=== PATIENT | male | born 1935 | race African-American/Black ===

== ENCOUNTER 2017-05-14 07:26 | Outpatient (CLI) | payer MEDICARE ==
--- NOTE | 2017-05-14 09:38 | CT ---
CT ABDOMEN WITH CONTRAST CT PELVIS WITH CONTRAST: DATE: 05/14/2017 HISTORY: A 81-year-old male with right upper quadrant abdominal pain with fever intermittently. R10.11 Dr. Morales discussed the findings by telephone with Dr. Elan Harris at 8:27 a.m. on 05/14/2017. Code CR. COMPARISON: None. TECHNIQUE: IV injection of iodinated contrast media: 100 mL of Isovue 370. Oral contrast media: Readi-Cat 2. FINDINGS: There are multiple diverticula in the ascending colon. There is an approximately 5 x 4.5 x 6 cm extr aluminal mass abutting the anterior surface of the ascending colon and abutting an inferolateral surf alexia of the proximal transverse colon, very close to the crotch of the hepatic flexure. This mass als o abuts the right anterolateral abdominal wall peritoneal surface. It is surrounded by much fat stra nding representing edema. This mass consists of innumerable tiny pockets of low attenuation (probabl y fluid), crisscrossed by numerous enhancing hills. The appearance is that of a phlegmon or an early abscess with numerous microchambers. There is no extraluminal gas. The pancreas, abdominal aorta, kidneys, adrenals, liver, and spleen, demonstrate no major pathology. Lung bases are grossly clear. No ascites or pneumoperitoneum. Decompressed urinary bladder. Diverticula in the sigmoid colon and scattered diverticula elsewhere in the colon. Moderate amount of colonic stool. The appendix is no rmal. IMPRESSION: 1. An inflammatory 6-cm extraluminal mass abutting the external surfaces of the right colon. 2. This is probably a phlegmon/abscess due to right colonic diverticulitis, which is uncommon. Becau se of its innumerable tiny microchambers, this probably would not be effectively drainable by percuta neous access. 3. There is a much smaller possibility that this could be an unusual extraluminal neoplasm complicate d by inflammation. 4. Surgical consultation is recommended. FARIBA Moreira POS: DEMETRIUS
[2017-05-14] MEDS ORDERED: Iopamidol 370 76% 100 ML VIAL ONE (11:44)
== END 2017-05-14 07:27 | disposition home or self-care (01) ==
LOC: CT 07:26
PROVIDERS: ATTEND Family Medicine
DX: R10.11 Right upper quadrant pain (principal); K63.89 Other specified diseases of intestine
CPT/HCPCS: 74177

== ENCOUNTER 2017-06-24 10:26 | Outpatient (CLI) | payer MEDICARE | END 2017-06-24 10:27 | disposition home or self-care (01) | LOC: BICCT 10:26 | PROVIDERS: ATTEND Surgery | DX: K57.92 Diverticulitis of intestine, part unspecified, without perforation or abscess without bleeding (principal); K63.89 Other specified diseases of intestine | CPT/HCPCS: 36415; 74177; 82565 ==

== ENCOUNTER 2018-05-04 10:23 | Inpatient (IN) | payer MEDICARE ==
[2018-05-04 11:02] LABS: #Eosinphils 0.1 thou/uL (0.0-0.7); #Lymphocytes 1.4 thou/uL (1.20-3.40); #Monocytes 0.4 thou/uL (0.11-0.59); #Neutrophils 4.3 thou/uL (1.40-6.50); %Basophils 0.2 % (0.0-1.0); %Eosinophils 1.6 % (0.0-10.0); %Monocytes 6.2 % (0.0-10.0); %Neutrophils 69.9 % (42.0-75.0); Hemoglobin 15.6 g/dL (14.0-18.0); Mean Corpuscular Hemoglobin 32.7 pg (27.0-31.0); Mean Corpuscular Volume 99.3 fL (78.0-98.0); Mean Platelet Volume 7.6 fL (7.4-10.4); Platelet Count 124 thou/uL (130-400); Red Blood Cell (RBC) Count 4.77 mill/uL (4.70-6.10); White Blood Cell (WBC) Count 6.2 thou/uL (4.8-10.8)
[2018-05-04 11:24] LABS: ALT (SGPT) 16 U/L (8-55); AST (SGOT) 21 U/L (5-34); Albumin 3.9 g/dL (3.4-4.8); Alkaline Phosphatase 48 U/L (40-150); Anion Gap 11 mmol/L (10-20); BUN (Urea Nitrogen) 12 mg/dL (8.4-25.7); Bilirubin, Total 1.6 mg/dL (0.2-1.2); Calc. Creatinine Clearance 0 mL/min (70-130); Calcium 9.2 mg/dL (7.8-10.44); Carbon Dioxide 28 mmol/L (23-31); Chloride 104 mmol/L (98-107); Estimated GFR-MDRD Greater than 90; Globulin 2.8 g/dL (2.4-3.5); Glucose 141 mg/dL (83-110); Potassium 3.6 mmol/L (3.5-5.1); Protein, Total 6.7 g/dL (5.8-8.1); Sodium 139 mmol/L (136-145)
--- NOTE | 2018-05-04 12:29 | CT ---
CT OF THE ABDOMEN AND PELVIS: DATE: 05/04/2018. PROVIDED CLINICAL HISTORY: Rectal bleeding. FINDINGS: Comparison is made with the CT examination dated 04/24/2018. The visualized lung bases are free of significant opacity. There is a 1.6 greatest transverse dimension x about 1.8 cm craniocaudal dimension soft tissue mass s een at the fundus of the stomach cranially containing internal calcification. The liver, spleen, pancreas, kidneys, and adrenal glands demonstrate an unremarkable CT appearance. There is no bowel dilatation, inflammatory fat stranding, free fluid, or free air apparent. No regional lymph node enlargement is evident. Vascular calcification is noted. Scattered colonic d iverticula are seen without CT evidence of diverticulitis. The appendix appears normal. IMPRESSION: 1. A 1.8 cm mass involving the fundus of the stomach for which endoscopic evaluation is recommended on a nonemergent basis There is also a smaller focus of increased density located more posteriorly a long the posterior aspect of the fundus of the stomach which could represent ingested material. An a dditional mass is possible. 2. Chronic findings as above. POS: DEMETRIUS
[2018-05-04] MEDS ORDERED: Iopamidol 370 76% 100 ML VIAL ONE (13:40)
[2018-05-04 14:03] VITALS: BMI 26.8
[2018-05-04] MEDS ORDERED: Ondansetron ODT 4 MG TAB SL PRN (14:07)
[2018-05-04] MEDS ORDERED: Acetaminophen 325 MG TAB PO PRN (14:07)
[2018-05-04] MEDS ORDERED: Sodium Chloride 0.9% 1,000 ML IV SCH ×2 (14:07→22:30)
[2018-05-04] MEDS ORDERED: Ondansetron PF 4 MG/2 ML Vial IVP PRN ×2 (14:07→18:13)
[2018-05-04] MEDS ORDERED: GoLYTELY 4,000 ml Bottle PO SCH (17:00)
[2018-05-04] MEDS ORDERED: Ondansetron ODT 4 MG TAB PO PRN (18:13)
[2018-05-04 18:32] LABS: #Lymphocytes 1.6 thou/uL (1.20-3.40); #Monocytes 0.4 thou/uL (0.11-0.59); #Neutrophils 4.3 thou/uL (1.40-6.50); %Basophils 0.6 % (0.0-1.0); %Eosinophils 0.2 % (0.0-10.0); %Lymphocytes 25.8 % (21.0-51.0); %Monocytes 5.6 % (0.0-10.0); %Neutrophils 67.8 % (42.0-75.0); Hemoglobin 13.8 g/dL (14.0-18.0); Mean Corpuscular HGB CONC 32.9 g/dL (32.0-36.0); Mean Corpuscular Hemoglobin 32.2 pg (27.0-31.0); Mean Corpuscular Volume 97.8 fL (78.0-98.0); Mean Platelet Volume 7.5 fL (7.4-10.4); Platelet Count 116 thou/uL (130-400); RBC Distribution Width 11.7 % (11.5-14.5); White Blood Cell (WBC) Count 6.3 thou/uL (4.8-10.8)
[2018-05-04] MEDS: Sodium Chloride 0.9% 1,000 ML IV SCH (19:39)
--- NOTE | 2018-05-04 20:23 | CON ---
DATE OF CONSULTATION: 05/04/2018 TYPE OF CONSULTATION: GI Inpatient REASON FOR CONSULTATION: GI bleeding. HISTORY OF PRESENT ILLNESS: Audie Pope is a very pleasant 82-year-old gentleman. He has previously seen my GI colleague, Dr. Katrin Jane. He has had a couple of episodes of diverticular bleeding in the past. He had an episode in 2000 and again in 2006. His last colonoscopy was in 2005 and showed only a single hyperplastic polyp, which was removed and diffuse diverticulosis of the colon. More recently, back in April 2017, he had an episode of complicated diverticulitis and a CT scan that showed actually a 6 cm abscess in the right colon. This was managed conservatively and by followup scan in May 2017, this area had reduced in size. He did not undergo any colon surgery. He did not undergo any repeat endoscopy. He has no chronic gastrointestinal symptoms. Early this morning, he passed a large amount of bright red blood per rectum. This happened 2 more times over the course of today. This was large volume and alarming to him. He feels like it is consistent with prior episodes of diverticular bleeding. He had a single lower abdominal cramp earlier today, but really no ongoing abdominal pain at all. No anal pain. He denies any presyncope, though he does state there is a bit of a heaviness in his shoulders sometimes. On presentation, his hemoglobin was 15.6. He has been hemodynamically stable without any tachycardia and with stable blood pressure. Currently feeling okay, but an abdominal CT scan performed on admission earlier today demonstrates a 1.6 x 1.8 cm soft tissue mass in the gastric fundus, diverticulosis, but no evidence of diverticulitis. No bowel dilation. No other abnormalities. It appears that he has had resolution of his right colonic fluid collection. REVIEW OF SYSTEMS: Full review of systems including constitutional, head, eyes, ears, nose, throat, GI, , cardiovascular, respiratory, musculoskeletal, and neurologic systems are negative except as noted in HPI. PAST MEDICAL HISTORY: Neck surgery, hypertension, hyperlipidemia, diverticular bleeding episodes in 2000 and 2006, last colonoscopy in 2005 showing hyperplastic polyp and diverticulosis, complicated diverticulitis in April 2017. ALLERGIES: NO KNOWN DRUG ALLERGIES. OUTPATIENT MEDICATIONS: 1. Aspirin 325 mg daily. 2. Zocor. 3. Hydrochlorothiazide. 4. Atenolol. 5. Doxazosin. FAMILY HISTORY: Negative for GI malignancy. SOCIAL HISTORY: Former smoker. No alcohol or drug use. PHYSICAL EXAMINATION: VITAL SIGNS: Temperature 97.9, pulse 74, blood pressure 101/69, and 97% oxygen saturation on room air. GENERAL: An 82-year-old gentleman, lying in bed comfortably, in no distress. SKIN: No pallor, no jaundice, no rashes were palpable. EYES: No scleral icterus. Extraocular movements intact. ENT: Mucous membranes moist. No oral lesions. LYMPH: No submandibular or supraclavicular lymphadenopathy. Thyroid nontender to palpation. HEART: Regular rate and rhythm. No murmur appreciated. LUNGS: Clear to auscultation bilaterally. ABDOMEN: Flat. Bowel sounds present. Soft and nontender to palpation throughout. EXTREMITIES: No peripheral edema. VESSELS: Radial pulses 2+ bilaterally. NEURO: Cranial nerves 2 through 12 intact bilaterally. No focal deficits. LABORATORY STUDIES: Hemoglobin 15.6, WBC 6.2, and platelets 124. Sodium 139, potassium 3.6, BUN 12, creatinine 0.87, and glucose 141. Total bilirubin 1.6, alkaline phosphatase 48, AST 21, ALT 16, and albumin 3.9. IMAGING STUDIES: CT of the abdomen and pelvis demonstrates a 1.6 x 1.8 cm soft tissue mass involving the gastric fundus with central calcification. There is no lymphadenopathy. No evidence of any inflammation or bowel dilation. Liver, spleen, and pancreas appear normal. There is colonic diverticulosis with no evidence of diverticulitis. ASSESSMENT AND PLAN: 1. Lower gastrointestinal bleeding, acute, likely diverticular in origin. 2. Gastric mass, 1.8 cm in the fundus per CT scan. The CT finding of possible gastric mass strikes me as likely unrelated to his acute bleeding presentation. If you are bleeding from an upper gastrointestinal source and the blood were bright red like this, I would expect his BUN to be elevated and for us to see some hemodynamic instability or at least a low blood count. So, I think this CT finding is incidental, though certainly further investigation is warranted. The bleeding itself strikes me as likely diverticular in origin and indeed he has had episodes of diverticular bleeding in the past. His labs and hemodynamics are currently favorable, but he needs to be closely monitored for the remainder of the day and this evening. Would recheck H and H later this evening, transfuse if needed. If the patient was to develop tachycardia or presyncope, I have a low threshold for ICU transfer. We will plan for bowel preparation this evening and diagnostic upper and lower endoscopy tomorrow. The patient is agreeable to this. Thank you for the consultation. Please call anytime with questions or concerns. Job ID: [id number]
[2018-05-04] MEDS: Simvastatin 40 MG TAB PO SCH (21:07)
[2018-05-04] MEDS: Doxazosin Mesylate 4 MG TAB PO SCH (21:07)
[2018-05-05] MEDS: Sodium Chloride 0.9% 1,000 ML IV SCH ×3 (00:10→21:33)
--- NOTE | 2018-05-05 01:06 | HP ---
PRIMARY CARE PHYSICIAN: Elan Harris MD CHIEF COMPLAINT: Rectal bleeding. HISTORY OF PRESENT ILLNESS: The patient states that acute onset over the last 1 day here of bright red blood per rectum. The patient states that this has happened before with a bout of diverticulitis with abscess formation. He presented to the emergency department for evaluation. CT showed possible gastric mass. No resemblance of diverticulitis on scan. The patient has had noticeable bloody stools in both emergency department and on floor. Nursing staff reported the patient is having typical hypertension, has become somewhat hypotensive despite being on IV fluids. The patient has described vasovagal response in recent days on using the rest room. Temperature of 98.1, pulse of 91, respiratory rate of 16, blood pressure 90/64. Hemoglobin of 15.6 decreased to 13.8 on recheck. Creatinine is 0.87. PAST MEDICAL HISTORY: Review of past medical, social, and surgical history includes hypertension, hyperlipidemia, diverticulosis, prior colon polyps. ALLERGIES: NO KNOWN DRUG ALLERGIES. HOME MEDICATIONS: Include: 1. Aspirin 325. 2. Zocor. 3. Hydrochlorothiazide. 4. Atenolol. 5. Doxazosin. SOCIAL HISTORY: The patient is a former smoker. PAST SURGICAL HISTORY: The patient has had prior cervical spine surgery. PHYSICAL EXAMINATION: GENERAL: He is alert and oriented, in no acute distress. HEENT: Head is normocephalic and atraumatic. Extraocular movements are intact. Oral mucosa is moist. NECK: Supple. HEART: Regular rate and rhythm at the time of exam. No murmurs auscultated. LUNGS: Clear to auscultation bilaterally. No rubs or wheezes. ABDOMEN: Protuberant, soft, nontender. No rebound or guarding. EXTREMITIES: Lower extremities without cyanosis or edema. NEUROLOGIC: The patient is alert and oriented x3. No focal deficits. Speech is normal. ASSESSMENT AND PLAN: Rectal bleeding with anemia of acute blood loss, possible gastric mass, hypertension that has since turned into hypotension following acute blood loss and possible vasovagal response. Dr. Yaron Mariano was consulted for Gastroenterology for possible upper and lower scopes. The patient is not tolerating GI prep very well with vagal response and additional dip in blood pressure, bolusing 500 NS, continuing IV fluids. We will continue to monitor the patient's progress and trend hemoglobins. We will handoff to Dr. Elan Harris in the morning. Job ID: [id number]
[2018-05-05 05:18] LABS: #Lymphocytes 1.9 thou/uL (1.20-3.40); #Monocytes 0.5 thou/uL (0.11-0.59); %Basophils 0.2 % (0.0-1.0); %Eosinophils 0.2 % (0.0-10.0); %Lymphocytes 29.5 % (21.0-51.0); %Monocytes 7.6 % (0.0-10.0); %Neutrophils 62.5 % (42.0-75.0); Hemoglobin 11.1 g/dL (14.0-18.0); Mean Corpuscular HGB CONC 33.3 g/dL (32.0-36.0); Mean Corpuscular Hemoglobin 32.9 pg (27.0-31.0); Mean Corpuscular Volume 98.7 fL (78.0-98.0); Mean Platelet Volume 7.5 fL (7.4-10.4); Platelet Count 119 thou/uL (130-400); RBC Distribution Width 11.8 % (11.5-14.5); Red Blood Cell (RBC) Count 3.37 mill/uL (4.70-6.10); White Blood Cell (WBC) Count 6.4 thou/uL (4.8-10.8)
[2018-05-05 05:38] LABS: Anion Gap 12 mmol/L (10-20); BUN (Urea Nitrogen) 14 mg/dL (8.4-25.7); Calc. Creatinine Clearance 88 mL/min (70-130); Calcium 8.2 mg/dL (7.8-10.44); Carbon Dioxide 27 mmol/L (23-31); Chloride 106 mmol/L (98-107); Estimated GFR-MDRD Greater than 90; Glucose 122 mg/dL (83-110); Potassium 3.8 mmol/L (3.5-5.1); Sodium 141 mmol/L (136-145)
[2018-05-05] MEDS ORDERED: Sodium Chloride 0.9% 1,000 ML IV SCH ×2 (07:30→19:45)
[2018-05-05] MEDS: Atenolol 50 MG TAB PO SCH (10:46)
[2018-05-05 12:59] LABS: Hemoglobin 8.4 g/dL (14.0-18.0)
[2018-05-05] MEDS ORDERED: Promethazine HCl 25 MG/ML VIAL IM PRN (15:17)
[2018-05-05] MEDS ORDERED: Promethazine HCl 25 MG/ML VIAL SLOW IVP PRN (15:17)
[2018-05-05] MEDS ORDERED: Ondansetron HCl/PF 4 MG/2 ML Vial IVP PRN (15:17)
--- NOTE | 2018-05-05 16:24 | PRG ---
DATE OF SERVICE: 05/05/2018 SUBJECTIVE: Mr. Pope is in for GI bleeding. He is currently scheduled to have upper and lower endoscopy. He was found to have some type of stomach mass, although GI bleed seems to be more lower GI bleeding, which he has had previously. Nurse reports that he is hypotensive and feels somewhat dizzy. OBJECTIVE: VITAL SIGNS: Blood pressure is 85/57, pulse 101 and regular, and temperature 98.9. GENERAL: He is alert and active, does not appear in any distress. LUNGS: Clear. HEART: Reveals no murmur. Regular rate and rhythm is otherwise noted. LABORATORY DATA: His hemoglobin this morning is 11.1 and hematocrit 33.3. Electrolytes are normal at this time. IMPRESSION: 1. Gastrointestinal bleeding probably lower. 2. Stomach mass of unknown significance. PLAN: Probably can proceed with upper and lower GI endoscopy. Once he completed his bolus of fluids, we will check another H and H stat right now. Job ID: [id number]
[2018-05-05 19:56] LABS: #Lymphocytes 2.2 thou/uL (1.20-3.40); #Monocytes 0.7 thou/uL (0.11-0.59); #Neutrophils 4.5 thou/uL (1.40-6.50); %Basophils 0.1 % (0.0-1.0); %Eosinophils 0.2 % (0.0-10.0); %Lymphocytes 29.4 % (21.0-51.0); %Monocytes 9.3 % (0.0-10.0); Hemoglobin 6.3 g/dL (14.0-18.0); Mean Corpuscular HGB CONC 33.4 g/dL (32.0-36.0); Mean Corpuscular Hemoglobin 33.4 pg (27.0-31.0); Mean Corpuscular Volume 99.9 fL (78.0-98.0); Platelet Count 90 thou/uL (130-400); RBC Distribution Width 11.9 % (11.5-14.5); Red Blood Cell (RBC) Count 1.88 mill/uL (4.70-6.10); White Blood Cell (WBC) Count 7.4 thou/uL (4.8-10.8)
[2018-05-05] MEDS ORDERED: Lidocaine 1% PF 5 ML VIAL ONE (21:26)
[2018-05-05] MEDS ORDERED: PHENYLEPHRINE-NS 100 MCG/ML 10 ML SYRINGE ONE (21:26)
[2018-05-05] MEDS ORDERED: PROPOFOL 200 MG/20 ML VIAL ONE (21:26)
--- NOTE | 2018-05-05 21:40 | OP ---
DATE OF PROCEDURE: 05/05/2018 PROCEDURES PERFORMED: Esophagogastroduodenoscopy with biopsy and controlled hemorrhage, colonoscopy with controlled hemorrhage. INDICATION FOR PROCEDURE: Abnormal GI imaging (showing gastric mass), hematochezia. DESCRIPTION OF PROCEDURE: After the risks and benefits of the procedure were explained to the patient including risks of bleeding, infection, perforation, reactions to anesthesia, aspiration, and/or pain, informed consent was obtained. The patient was then taken to the endoscopy suite, where deep sedation was administered via propofol and anesthesia support. Once adequate sedation was achieved, the standard gastroscope was introduced into the mouth with intubation of the esophagus, stomach, and the proximal small intestine with the findings listed below. The patient tolerated this portion of the procedure well with no immediate perioperative complications. Upon completion of this phase of the procedure, all equipment was removed from the patient and the bed was rotated approximately 180 degrees. Once in adequate position, a digital rectal examination was performed followed by introduction of the standard colonoscope into the rectum and advanced with some difficulty to the terminal ileum. The quality of the prep was poor with a significant amount of old blood seen throughout the entire colon making it difficult to visualize both the colonic mucosa and the colonic lumen for passage through the colon. The patient tolerated the procedure well with no immediate perioperative complications. At the conclusion of the procedure, the patient was taken to PACU in satisfactory condition. EGD FINDINGS: Esophagus: Normal-appearing mucosa was seen in the proximal, mid, and distal esophagus. There was no evidence of erosions, ulcerations, mass, lesions, or active/recent bleeding. Stomach: A 1 cm submucosal nodule was seen in the gastric fundus without any associated pathology or increased erythema, ulcerations, erosions, or active/recent bleeding. Multiple biopsies were taken from the submucosal nodule with mild increased bleeding upon obtaining these biopsies. When one biopsy in particular, did not stop bleeding, upon direct visualization for approximately 3 to 4 minutes, at which point, bipolar cautery was applied using a 7-Syrian heater probe with good hemostasis achieved. Otherwise, the remainder of the stomach did not show any abnormalities in the gastric cardia, fundus, body, greater curvature, antrum, or incisura. Duodenum: Normal-appearing mucosa was seen in both the duodenal bulb and second portion of the duodenum. There was no evidence of erosions, ulcerations, mass, lesions, or active/recent bleeding. Impression: 1. A 1 cm submucosal nodule seen within the gastric fundus, status post biopsies and concerning for rather lipoma or GI stromal tumor (more likely). 2. Otherwise, normal upper endoscopy with no gastric malignancy seen during this examination. COLONOSCOPY FINDINGS: Digital rectal exam: Small external hemorrhoids were seen on digital rectal examination as well as extrusion of bright red blood per rectum. Colon findings: Normal-appearing mucosa without the evidence of blood was seen in the terminal ileum. However, throughout the entire colon, there was a significant amount of old bright red blood that was somewhat amenable to aggressive irrigation and suctioning. Approximately 3 L of sterile water was used to irrigate the entire colon with suctioning in order to achieve adequate visualization of the colonic mucosa. Even then, clear visualization of the colonic mucosa was not totally achieved with approximately 80% to 90% of the colonic mucosa adequately seen. There was innumerable diverticula seen in the ascending, transverse, descending, and sigmoid colons. Upon further examination of the mucosa, normal-appearing mucosa was seen at the ileocecal valve, the appendiceal orifice, cecum, and ascending colons. Upon careful inspection of each diverticulum encountered, a 6 to 7 mm diverticulum seen in the transverse colon had increased mucosal erythema at the base of the diverticulum itself along with what appeared to be a possible visible vessel versus a fibrin clot in the center of this mucosal erythema. A Hemoclip x1 was then used to approximate the entirety of the diverticulum itself and to close it off to further bleeding. Otherwise, again innumerable diverticulum were seen throughout the rest of the colon including the distal, transverse, descending, and sigmoid colons with no other additional abnormalities seen. Normal-appearing mucosa was seen within the rectum. Also of note, a 5 to 6 mm sessile polyp was seen in the ascending colon, but not intervened upon during this procedure due to recent increased bleeding and fear that this would potentially confound his current clinical status. Small internal hemorrhoids were seen on the rectal retroflexion. Impression: 1. A 4 to 5 mm ascending colon polyp not intervened upon due to possible increased risk of bleeding confounding current clinical situation. 2. Inadequate visualization of the colonic mucosa for 5 mucosal lesions, but no active bleeding was seen during this examination. 3. A 6 to 7 mm transverse colon diverticulum was seen with increased mucosal erythema and a possible visible vessel versus fibrin clot at its base, status post Hemoclip x1 with good hemostasis achieved. 4. Internal and external hemorrhoids. RECOMMENDATIONS: 1. We transferred the patient to intermediate care unit for further observation given his significant drop in H and H. 2. We would continue to trend H and H and transfuse as necessary to maintain an H and H of 7 and 21. 3. Continue to monitor clinically for signs of active GI bleeding. 4. If the patient continues to have significant amount of hematochezia, we would consider either a tagged red cell scan for better localization of the bleeding versus transferring the patient to a site that does CT angiography with coil embolization in order to stop the bleeding. We will continue to follow. Please call with any questions. Job ID: [id number]
[2018-05-05 22:34] LABS: #Basophils 0.1 thou/uL (0.0-0.2); #Lymphocytes 1.3 thou/uL (1.20-3.40); #Monocytes 0.6 thou/uL (0.11-0.59); #Neutrophils 5.2 thou/uL (1.40-6.50); %Basophils 0.8 % (0.0-1.0); %Eosinophils 0.7 % (0.0-10.0); %Lymphocytes 18.2 % (21.0-51.0); %Monocytes 7.8 % (0.0-10.0); %Neutrophils 72.5 % (42.0-75.0); Hemoglobin 8.2 g/dL (14.0-18.0); Mean Corpuscular HGB CONC 33.5 g/dL (32.0-36.0); Mean Corpuscular Hemoglobin 32.5 pg (27.0-31.0); Mean Platelet Volume 7.6 fL (7.4-10.4); Platelet Count 90 thou/uL (130-400); RBC Distribution Width 13.2 % (11.5-14.5); Red Blood Cell (RBC) Count 2.53 mill/uL (4.70-6.10); White Blood Cell (WBC) Count 7.1 thou/uL (4.8-10.8)
[2018-05-05] MEDS: Doxazosin Mesylate 4 MG TAB PO SCH (23:59)
[2018-05-05] MEDS: Simvastatin 40 MG TAB PO SCH (23:59)
[2018-05-06 06:08] LABS: #Eosinphils 0.1 thou/uL (0.0-0.7); #Lymphocytes 2.4 thou/uL (1.20-3.40); #Monocytes 0.6 thou/uL (0.11-0.59); #Neutrophils 6.2 thou/uL (1.40-6.50); %Basophils 0.2 % (0.0-1.0); %Eosinophils 0.8 % (0.0-10.0); %Lymphocytes 25.8 % (21.0-51.0); %Monocytes 6.6 % (0.0-10.0); %Neutrophils 66.7 % (42.0-75.0); Hemoglobin 9.1 g/dL (14.0-18.0); Mean Corpuscular HGB CONC 33.2 g/dL (32.0-36.0); Mean Corpuscular Hemoglobin 31.7 pg (27.0-31.0); Mean Corpuscular Volume 95.5 fL (78.0-98.0); Mean Platelet Volume 7.7 fL (7.4-10.4); Platelet Count 92 thou/uL (130-400); RBC Distribution Width 13.8 % (11.5-14.5); Red Blood Cell (RBC) Count 2.86 mill/uL (4.70-6.10); White Blood Cell (WBC) Count 9.3 thou/uL (4.8-10.8)
[2018-05-06 08:06] LABS: Anion Gap 9 mmol/L (10-20); BUN (Urea Nitrogen) 16 mg/dL (8.4-25.7); Calc. Creatinine Clearance 90 mL/min (70-130); Carbon Dioxide 21 mmol/L (23-31); Chloride 113 mmol/L (98-107); Estimated GFR-MDRD Greater than 90; Glucose 134 mg/dL (83-110); Potassium 3.5 mmol/L (3.5-5.1); Sodium 139 mmol/L (136-145)
[2018-05-06] MEDS: Sodium Chloride 0.9% 1,000 ML IV SCH ×3 (09:38→20:38)
[2018-05-06] MEDS: Atenolol 50 MG TAB PO SCH (09:39)
--- NOTE | 2018-05-06 12:55 | PRG ---
DATE OF SERVICE: 05/06/2018 SUBJECTIVE: Mr. Pope underwent embolization procedure last night at [facility] for his recurrent diverticular bleed. I spoke with Dr. Guillen at that time. At this time, he states he is feeling better. OBJECTIVE: VITAL SIGNS: Blood pressure 93/74, pulse 94, and O2 sats 100% on 2 L. LUNGS: Clear. HEART: Reveals no murmurs. ABDOMEN: Soft. LABORATORY DATA: Hemoglobin 9.1, hematocrit 27.3, and white blood count 9.3. IMPRESSION: 1. Lower gastrointestinal bleed, requiring embolization procedure, now stable. 2. Gastric mass, requiring further workup. PLAN: We will check basic metabolic panel later this morning. We will continue monitoring. Job ID: [id number]
--- NOTE | 2018-05-06 18:26 | PRG ---
DATE OF SERVICE: 05/06/2018 REPORT TITLE: GI inpatient daily progress note. SUBJECTIVE: Mr. Pope had an eventful day yesterday. I appreciate Dr. Guillen's assistance. Following his colonoscopy and hemoclip placement to a diverticulum in the transverse colon, he had evidence of acute rebleeding and hemodynamic instability. He was transferred to [facility] in [place] for CT angiogram with coil embolization. I do not have any official report from that procedure, but by verbal report, he actually was found to have active bleeding on that study and coil embolization to an area in the transverse colon, which correlates with the area in question seen by Dr. Guillen. Thankfully, after transfer back here over the course of today, the patient has not had any further bowel movement, certainly no hematochezia. His blood pressures have been much better, though I do note he has continued to have intermittent tachycardia. He does not have much appetite, but he is not having any abdominal pain. OBJECTIVE: VITAL SIGNS: Temperature 99.8, pulse 110, blood pressure 105/81, and 100% oxygen saturation on 2 L nasal cannula. GENERAL: No acute distress, a bit pale. HEART: Regular. Tachycardia. No murmur appreciated. LUNGS: Clear to auscultation bilaterally. ABDOMEN: Bowel sounds present. Soft and nontender to palpation throughout. EXTREMITIES: No peripheral edema. LABORATORY STUDIES: Hemoglobin 9.1, WBC 9.3, and platelets 92. His hemoglobin had declined to 6.3 by yesterday afternoon and is up to 9.1 after 2 units of RBC transfusion yesterday. Sodium 139, potassium 3.5, BUN 16, and creatinine 0.83. ASSESSMENT AND PLAN: 1. Diverticular bleeding, located in the transverse colon, now status post coil embolization to a bleeding vessel performed at [facility] earlier this morning on 05/06/2018. 2. Acute blood loss anemia, stabilized after blood transfusion. I see no further evidence of active GI bleeding since his procedure early this morning. He will probably have some leftover blood with his next bowel movement. Continue to monitor hemodynamics and H and H closely. I think his diet can be advanced to a regular diet at this time. 3. Submucosal gastric nodule, in the gastric fundus. This was biopsied by Dr. Guillen yesterday. This probably corresponds with the CT finding, which prompted the EGD in the first place. Awaiting results of biopsies. This might be compatible with a lipoma or GI stromal tumor. Unrelated to his acute presentation. We will follow up biopsy results once they are back. Please call anytime with questions or concerns. Job ID: [id number] MTDD
[2018-05-06] MEDS: Simvastatin 40 MG TAB PO SCH (20:37)
[2018-05-06] MEDS: Doxazosin Mesylate 4 MG TAB PO SCH (20:38)
[2018-05-06] MEDS: Acetaminophen 500 MG TAB PO PRN (22:16)
--- NOTE | 2018-05-07 02:41 | CON ---
DATE OF CONSULTATION: 05/06/2018 HISTORY OF PRESENT ILLNESS: Mr. Pope is an 82-year-old gentleman who had presented on the with the abdominal cramping, abdominal pain, and bright red blood per rectum. CT showed a possible gastric mass. He underwent endoscopy, which led to biopsies, which led to bleeding. Apparently, he ended up having to be transferred over to Interventional Radiology in [facility] for embolization of a bleeding vessel. Pathology is still pending. He says he feels 100% better. PAST MEDICAL HISTORY: Notable for, 1. Hypertension. 2. Liver disorder. 3. Diverticulosis. 4. History of colon polyps. MEDICATIONS: Prior to admission, he was on, 1. Aspirin. 2. Zocor. 3. Hydrochlorothiazide. 4. Atenolol. 5. Doxazosin. SOCIAL HISTORY: Former smoker. Not a daily drinker. FAMILY HISTORY: Not obtained. REVIEW OF SYSTEMS: 10 point review of systems completed, otherwise negative. PAST SURGICAL HISTORY: Remarkable for cervical spine surgery. PHYSICAL EXAMINATION: GENERAL: He is in no distress when I saw him after lunch. He is afebrile. VITAL SIGNS: Heart rate is 97, respiratory rate is 16, oximetry is 100% on 2 L, blood pressure is 99/61. HEAD: Unremarkable. Appears younger than his age. NECK: Unremarkable. LUNGS: Clear. HEART: Regular rhythm. ABDOMEN: Absolutely nontender. EXTREMITIES: Without clubbing, cyanosis, or edema. LABORATORY DATA: White count 9.3, hemoglobin 9.1, platelets 92,000. Sodium 139 , potassium 3.5, chloride 113, bicarb 21, BUN 16, creatinine 0.83, glucose 134. IMPRESSION: Status post embolization. He appears to be stable post coil embolization. Apparently, the embolization was done on the transverse colon. It is my understanding that this was a gastric nodule that was biopsied that was bleeding, but now reviewing Dr. Guillen's note , which was not available this morning, it appears it was diverticular bleed. He appears to be stable, will remain in the Intermediate Care Unit for now. This is a 50 minute consult, with greater than 50% of time spent on unit coordinating care. Job ID: [id number] [facility]
[2018-05-07 04:47] LABS: Anion Gap 6 mmol/L (10-20); BUN (Urea Nitrogen) 15 mg/dL (8.4-25.7); Calc. Creatinine Clearance 98 mL/min (70-130); Calcium 7.1 mg/dL (7.8-10.44); Carbon Dioxide 24 mmol/L (23-31); Chloride 113 mmol/L (98-107); Estimated GFR-MDRD Greater than 90; Glucose 112 mg/dL (83-110); Sodium 140 mmol/L (136-145)
[2018-05-07 04:55] LABS: Potassium 2.8 mmol/L (3.5-5.1)
[2018-05-07 05:11] LABS: Hemoglobin 5.8 g/dL (14.0-18.0); Mean Corpuscular HGB CONC 34.1 g/dL (32.0-36.0); Mean Corpuscular Hemoglobin 32.1 pg (27.0-31.0); Mean Platelet Volume 7.4 fL (7.4-10.4); Platelet Count 89 thou/uL (130-400); RBC Distribution Width 14.8 % (11.5-14.5); Red Blood Cell (RBC) Count 1.82 mill/uL (4.70-6.10); White Blood Cell (WBC) Count 6.1 thou/uL (4.8-10.8)
[2018-05-07 05:30] LABS: #Eosinphils 0.1 thou/uL (0.0-0.7); #Lymphocytes 0.7 thou/uL (1.20-3.40); #Monocytes 0.6 thou/uL (0.11-0.59); #Neutrophils 4.7 thou/uL (1.40-6.50); %Basophils 0.1 % (0.0-1.0); %Eosinophils 1.3 % (0.0-10.0); %Lymphocytes 12.2 % (21.0-51.0); %Monocytes 9.1 % (0.0-10.0); %Neutrophils 77.4 % (42.0-75.0); MDiff Complete? YES; PLT Morphology Comment Appears Decreased; Polychromasia SLIGHT = 2-3 cells (100X) (0-2/hpf)
[2018-05-07] MEDS ORDERED: Potassium Chloride 40 MEQ in Sodium Chloride 0.9% 250 ML 250 ML IVPB SCH (05:30)
[2018-05-07] MEDS: Sodium Chloride 0.9% 1,000 ML IV SCH ×2 (06:09→17:27)
[2018-05-07] MEDS: Atenolol 50 MG TAB PO SCH (09:15)
[2018-05-07 09:36] LABS: Hemoglobin 8.2 g/dL (14.0-18.0)
[2018-05-07 11:32] LABS: Hemoglobin 8.1 g/dL (14.0-18.0); Platelet Count 89 thou/uL (130-400)
--- NOTE | 2018-05-07 11:49 | PRG ---
DATE OF SERVICE: 05/07/2018 SUBJECTIVE: Mr. Pope has been doing well. His hemoglobin done this morning was 5.8, hematocrit 17.1. Potassium is 2.8. He has had no signs of any active bleeding. No blood per rectum has otherwise been noted. He does note some pain with urination. OBJECTIVE: VITAL SIGNS: Blood pressure 104/72, pulse 105, and temperature 99.9. LUNGS: Clear. HEART: Reveals no murmur. ABDOMEN: Soft. Bowel sounds are present and active. IMPRESSION: Probable recurrence of lower gastrointestinal bleed. PLAN: He is now in the process of being given 2 units of blood. Secondly, he is getting the potassium supplementation with IV potassium 40 mEq. We will check electrolytes and H and H on him at 11 o'clock. Job ID: [id number]
[2018-05-07 11:53] LABS: Anion Gap 10 mmol/L (10-20); BUN (Urea Nitrogen) 12 mg/dL (8.4-25.7); Calc. Creatinine Clearance 108 mL/min (70-130); Calcium 7.3 mg/dL (7.8-10.44); Carbon Dioxide 20 mmol/L (23-31); Chloride 114 mmol/L (98-107); Estimated GFR-MDRD Greater than 90; Glucose 98 mg/dL (83-110); Potassium 3.1 mmol/L (3.5-5.1); Sodium 141 mmol/L (136-145)
[2018-05-07] MEDS ORDERED: Potassium Chloride 20 MEQ in Premix Bag 1 BAG IVPB SCH (14:00)
[2018-05-07 16:05] LABS: Hemoglobin 8.7 g/dL (14.0-18.0); Platelet Count 89 thou/uL (130-400)
[2018-05-07 16:20] LABS: Anion Gap 8 mmol/L (10-20); BUN (Urea Nitrogen) 12 mg/dL (8.4-25.7); Calc. Creatinine Clearance 108 mL/min (70-130); Calcium 7.6 mg/dL (7.8-10.44); Carbon Dioxide 25 mmol/L (23-31); Chloride 112 mmol/L (98-107); Estimated GFR-MDRD Greater than 90; Glucose 92 mg/dL (83-110); Potassium 3.1 mmol/L (3.5-5.1); Sodium 142 mmol/L (136-145)
[2018-05-07] MEDS ORDERED: NS 0.9% w/ 20 MEQ KCL 1,000 ML IV SCH (17:00)
--- NOTE | 2018-05-07 18:07 | PRG ---
DATE OF SERVICE: 05/07/2018 SUBJECTIVE: Audie Pope had a mild resting tachycardia all night. His hemoglobin dropped down to approximately 5 g this morning. He was transfused 2 units of blood. His hemoglobin is up over 8 g now. He has absolutely no complaints, although, he does say he feels a little rumbling in his abdomen. Lungs are clear. Heart, regular rhythm. Abdomen soft. He has had no drop in blood pressure. He had a bloody bowel movement today and afebrile, in sinus rhythm. Blood pressure is 123/79 this afternoon. IMPRESSION: Transient recurrent bleeding? Neurosurgery has been consulted. I discussed the case with Dr. Carrasquillo. We will continue to monitor hemoglobin and hematocrits. Job ID: [id number]
--- NOTE | 2018-05-07 18:54 | PRG ---
DATE OF SERVICE: 05/07/2018 REPORT TITLE: GI Inpatient Daily Progress Note. SUBJECTIVE: Mr. Pope says he is feeling pretty well today. He does not have much appetite, but he is not having any abdominal pain. He has not passed any bowel movement today, certainly no hematochezia and he has remained hemodynamically stable. Interestingly, his hemoglobin dropped precipitously from yesterday to today, it was 9.1 yesterday morning and went down to 5.8 this morning, but with no overt evidence of continued GI blood loss other than this. He has received 2 units of RBC transfusion and hemoglobin came up nicely to 8.2 and is now stable at 8.7 this afternoon. OBJECTIVE: VITAL SIGNS: Temperature 99.3, pulse 97, blood pressure 123/79, and 100% oxygen saturation on 2.5 L nasal cannula. GENERAL: No acute distress. HEART: Regular rate and rhythm. LUNGS: Clear to auscultation bilaterally. ABDOMEN: Soft and nontender to palpation. EXTREMITIES: No peripheral edema. LABORATORY STUDIES: Hemoglobin dropped from 9.1 to 5.8 this morning, but after 2 units RBC transfusion, it is now stable again at 8.7; WBC 6.1; platelets 89. BUN 12, creatinine 0.71, sodium 141, and potassium 3.1. ASSESSMENT AND PLAN: 1. 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 2. Acute blood loss anemia. The patient has had no further overt gastrointestinal blood loss since his coil embolization in the information security yesterday. He has remained hemodynamically stable, which is a good sign. That being said, I really cannot explain why he would have dropped his hemoglobin over 3 points from yesterday to today. Perhaps, this was lab error or delayed effect. I would continue to monitor him closely. Recheck hemoglobin and hematocrit tomorrow. We can start him back on a liquid diet tonight. If the patient does give evidence of recurrent significant bleeding, then the next step would be an urgent tagged RBC scan to confirm localization to this area of the transverse colon. I did discuss the case briefly earlier today with Dr. Carrasquillo, who agrees that surgery should be a last resort. GI will continue to follow. Please call anytime with questions or concerns. Job ID: [id number]
[2018-05-07] MEDS ORDERED: D5 LR w/20 mEq KCL 1,000 ML IV SCH (19:45)
[2018-05-07] MEDS: Simvastatin 40 MG TAB PO SCH (20:42)
[2018-05-07] MEDS: Doxazosin Mesylate 4 MG TAB PO SCH (20:42)
--- NOTE | 2018-05-07 20:58 | CON ---
DATE OF CONSULTATION: 05/07/2018 TYPE OF CONSULTATION: Surgical CONSULTING PHYSICIAN: Yaron Mariano MD REASON FOR CONSULTATION: GI bleeding, suspected to be bleeding from the transverse colon. HISTORY OF PRESENT ILLNESS: This patient is an 82-year-old male. He presented to the hospital 3 days ago on May 04 following an episode of GI bleeding from the rectum at home. He has a history of what is suspected to be diverticular bleeds a couple of times in the past (in 2000 and 2006). He was admitted to the hospital at that time. CT scan was obtained revealing what appeared to be a mass within the fundus of the stomach. Subsequent colonoscopy was performed by Dr. Guillen on May 05. This revealed what appeared to potentially have been a source of bleeding within a diverticulum in the transverse colon. Hemoclip was applied at that time. His hemoglobin at presentation was 15.6. By the following evening on May 05, it dropped down to 6.3. He was transfused with 2 units of packed red blood cells that evening. He was transferred to [facility] here in [place] and a visceral angiogram was performed, which apparently revealed bleeding within the colon that was suspected to be at the level of the transverse colon (from what I understand). The record from this is not available currently. The patient seemed to stabilize after returning. He remained stable yesterday and had no blood per rectum or bowel movements of any sort yesterday. Then, surprisingly, this morning his hemoglobin had dropped from 9.1 yesterday to 5.8 this morning. This is without passage of any blood per rectum or any vomiting of blood. He was transfused with 2 more units of packed red blood cells today. His hemoglobin responded nicely with his hemoglobin being 8.2 at 9 this morning. It has remained stable throughout the day and was most recently 8.7. He has had mild temperature elevations up to 99.8. His pulse was somewhat tachycardic this morning at 115, but has come down to the 90s currently. Blood pressure is within normal limits at 116/73. He denies any abdominal discomfort. PAST MEDICAL HISTORY: Significant for hypertension, hyperlipidemia, diverticular bleeding episodes, and apparently a prior episode of diverticulitis. PAST SURGICAL HISTORY: Neck surgery with a multilevel cervical laminectomy in 1997. ALLERGIES: NO KNOWN DRUG ALLERGIES. MEDICATIONS: 1. Aspirin. 2. Zocor. 3. Hydrochlorothiazide. 4. Atenolol. 5. Doxazosin. PERSONAL AND SOCIAL HISTORY: He is with 5 children. One of his sons is present at bedside. He is retired and lives here in [place]. His primary care physician is Dr. Elan Harris. He smoked over 40 years ago. He denies alcohol use. REVIEW OF SYSTEMS: Otherwise unremarkable. PHYSICAL EXAMINATION: VITAL SIGNS: Most recent vital signs; temperature 99.7, pulse 90, and blood pressure 116/73. GENERAL: This is a well-developed, well-nourished, pleasant, alert, black male, resting in bed, in no acute distress. He is alert and oriented x3. HEAD, EYES, EARS, NOSE, AND THROAT: Unremarkable. NECK: Supple without mass or tenderness. LUNGS: Clear to auscultation throughout. CARDIAC: Regular rate and rhythm without murmur. ABDOMEN: Soft, nontender, and nondistended with normoactive bowel sounds. EXTREMITIES: Unremarkable. RECTAL: Exam was deferred at this time. LABORATORY DATA: His most recent hemoglobin at 4 this afternoon was 8.7. His platelet count is low at 89. I am uncertain of the reason of his thrombocytopenia. His electrolytes revealed mild hypokalemia with a potassium of 3.1. ASSESSMENT AND PLAN: The patient with a recent gastrointestinal bleed. Unfortunately, the colonoscopy did not reveal a definitive source of the blood loss. This is suspected to be from a diverticulum within the transverse colon. It is possible that his angiography did reveal a source of blood loss, but we do not have these records. This is thought to probably be also within the transverse colon. It is also an enigma, that he would have dropped his hemoglobin so low and not passed any blood per rectum or vomited any blood. In summary, he is currently stable with no evidence of ongoing bleeding. He has been transfused with 4 units of packed red blood cells already. I would recommend continued observation. Should he have recurrent bleeding, then hopefully we would be able to get more specific localization per Gastroenterology. Otherwise, surgery would be somewhat of a blind/hopeful resection. I have discussed all this in detail with the patient and his son. Job ID: [id number]
[2018-05-08] MEDS: Acetaminophen 500 MG TAB PO PRN (00:36)
[2018-05-08 04:43] LABS: INR-International Normal Ratio 1.2; PTT 32.6 SEC (22.9-36.1); Prothrombin Time 15.1 SEC (12.0-14.7)
[2018-05-08 04:51] LABS: Band 2 % (5-11); Hemoglobin 7.1 g/dL (14.0-18.0); Hypochromia SLIGHT = 6-15 cells (100X) (0-5/hpf); Lymphocytes 14 % (21-51); MDiff Complete? YES; Mean Corpuscular HGB CONC 34.8 g/dL (32.0-36.0); Mean Corpuscular Hemoglobin 32.6 pg (27.0-31.0); Mean Corpuscular Volume 93.6 fL (78.0-98.0); Mean Platelet Volume 6.8 fL (7.4-10.4); Monocytes 4 % (0-10); Neutrophil 80 % (42-75); PLT Morphology Comment Appears Decreased; Platelet Count 94 thou/uL (130-400); RBC Distribution Width 13.8 % (11.5-14.5); Red Blood Cell (RBC) Count 2.17 mill/uL (4.70-6.10); White Blood Cell (WBC) Count 3.4 thou/uL (4.8-10.8)
[2018-05-08 04:54] LABS: Anion Gap 7 mmol/L (10-20); BUN (Urea Nitrogen) 12 mg/dL (8.4-25.7); Calc. Creatinine Clearance 118 mL/min (70-130); Calcium 7.5 mg/dL (7.8-10.44); Carbon Dioxide 25 mmol/L (23-31); Chloride 112 mmol/L (98-107); Estimated GFR-MDRD Greater than 90; Glucose 99 mg/dL (83-110); Potassium 3.2 mmol/L (3.5-5.1); Sodium 141 mmol/L (136-145)
[2018-05-08] MEDS ORDERED: Furosemide 40 MG/4 ML VIAL SLOW IVP SCH (09:15)
--- NOTE | 2018-05-08 10:46 | PRG ---
DATE OF SERVICE: 05/08/2018 SUBJECTIVE: Mr. Pope is feeling better. He is now tolerating p.o. intake. OBJECTIVE: VITAL SIGNS: Blood pressure 122/85, respirations 24, O2 sats 100%, temperature 98.6, and pulse is 90 and regular. LUNGS: Clear. HEART: Reveals a regular rate and rhythm. No murmurs, gallops, or rubs. ABDOMEN: Soft and nontender. Bowel sounds appear to be present and active. No hepatosplenomegaly is noted. LABORATORY DATA: Hemoglobin 7.1, hematocrit 20.3, white count . Sodium 141, potassium 3.2, chloride 112, CO2 of 25, BUN 12, and creatinine 0.65. IMPRESSION: 1. Lower gastrointestinal bleed. He has had surgical consult. I does not feel like surgery is an option at this point. 2. Lower gastrointestinal bleed is currently probable stable. 3. Hypokalemia. He will continue potassium replacement at this time. PLAN: I have discussed the findings with the patient. I am going to go ahead transfuse him 2 more units of packed red blood cells. He is not actively bleeding. hemoglobin steady above 9. It is noted I will be out of the office over the next 3 days. I will notify my colleagues who were covering for me to round on him. This gentleman possibly could be discharged as early Saturday, if he progresses well. Job ID: [id number]
[2018-05-08] MEDS: Atenolol 50 MG TAB PO SCH (11:21)
--- NOTE | 2018-05-08 13:07 | PRG ---
DATE OF SERVICE: 05/08/2018 SUBJECTIVE: Audie Pope dropped his hemoglobin again to 7.1 this morning. He was trying to have bowel movement when I was in the room. He denies having pain, but he feels like he is bleeding again, he says. OBJECTIVE: LUNGS: Clear. HEART: Regular rhythm. ABDOMEN: Soft. VITAL SIGNS: Afebrile, respiratory rate is 22, oximetry is 100% on room air. IMPRESSION: Gastrointestinal blood loss, likely ongoing. Surgery is being consulted. Family was in the room and I explained to them that surgery is always last resort, but will be certainly an option, if he declares himself and continues to bleed. The difficulty here is that the coil embolization and bleeding were a best guess scenario, as there were multiple possible sources. He might benefit from repeat endoscopy if he declares that he is still bleeding to identify clearly the source. I do not think he is bleeding enough for a nuclear bleeding scan to localize the source, but it is an option as well. Job ID: [id number] MTDD
--- NOTE | 2018-05-08 17:06 | PRG ---
DATE OF SERVICE: 05/08/2018 GI INPATIENT DAILY PROGRESS NOTE SUBJECTIVE: Mr. Pope is feeling well. His appetite is getting better. He is tolerating a full liquid diet. He reports he has had two bowel movements today. He had some very dark stool for one bowel movement and the other was mostly gas. He denies any further bright red blood per rectum. He has remained hemodynamically stable. His hemoglobin did drop again overnight from 8.7 to 7.1, but with no recurrence of tachycardia or hypotension. He is getting another unit of blood. PHYSICAL EXAMINATION: VITAL SIGNS: Temperature 99.2, blood pressure 158/99, pulse 85, and 100% oxygen saturation on room air. GENERAL: In no acute distress. HEART: Regular rate and rhythm. LUNGS: Clear to auscultation bilaterally. ABDOMEN: Soft, nontender to palpation throughout. EXTREMITIES: No peripheral edema. LABORATORY STUDIES: Hemoglobin 7.1, WBC 3.4, and platelets 94. Sodium 142, potassium 3.1, BUN 12, and creatinine 0.71. ASSESSMENT AND PLAN: 1. Lower gastrointestinal bleeding, diverticular in origin, from the area of the hepatic flexure, status post coil embolization to actively bleeding vessel performed at [facility] early on 05/06/2018. 2. Acute blood loss anemia. Again, there was some discordance between the degree of his hemoglobin decline over the past couple of days, and clinically, no other evidence of continued gastrointestinal blood loss. If he is still bleeding, certainly it is slowed way down. I agree that if he is bleeding, then it is not likely brisk enough to be detected by a tagged RBC scan. On the other hand, we do not have the report back from [facility] detailing quite clearly that the bleeding source was localized to the area of the hepatic flexure. No plan for any repeat endoscopy. Monitor H and H tomorrow. He can continue on his full liquid diet. Job ID: [id number]
[2018-05-08] MEDS: Simvastatin 40 MG TAB PO SCH (20:05)
[2018-05-08] MEDS: Doxazosin Mesylate 4 MG TAB PO SCH (20:05)
[2018-05-09 04:08] LABS: #Eosinphils 0.1 thou/uL (0.0-0.7); #Monocytes 0.4 thou/uL (0.11-0.59); #Neutrophils 2.6 thou/uL (1.40-6.50); %Basophils 0.7 % (0.0-1.0); %Eosinophils 3.3 % (0.0-10.0); %Lymphocytes 24.2 % (21.0-51.0); %Monocytes 10.4 % (0.0-10.0); %Neutrophils 61.3 % (42.0-75.0); Hemoglobin 9.5 g/dL (14.0-18.0); Mean Corpuscular HGB CONC 35.3 g/dL (32.0-36.0); Mean Corpuscular Hemoglobin 33.3 pg (27.0-31.0); Mean Corpuscular Volume 94.6 fL (78.0-98.0); Mean Platelet Volume 6.7 fL (7.4-10.4); Platelet Count 113 thou/uL (130-400); RBC Distribution Width 14.4 % (11.5-14.5); Red Blood Cell (RBC) Count 2.84 mill/uL (4.70-6.10); White Blood Cell (WBC) Count 4.3 thou/uL (4.8-10.8)
[2018-05-09 04:24] LABS: ALT (SGPT) 14 U/L (8-55); AST (SGOT) 29 U/L (5-34); Albumin 2.6 g/dL (3.4-4.8); Alkaline Phosphatase 31 U/L (40-150); Anion Gap 8 mmol/L (10-20); BUN (Urea Nitrogen) 9 mg/dL (8.4-25.7); Bilirubin, Total 0.8 mg/dL (0.2-1.2); Calc. Creatinine Clearance 114 mL/min (70-130); Calcium 7.6 mg/dL (7.8-10.44); Carbon Dioxide 29 mmol/L (23-31); Chloride 107 mmol/L (98-107); Estimated GFR-MDRD Greater than 90; Globulin 1.8 g/dL (2.4-3.5); Glucose 103 mg/dL (83-110); Protein, Total 4.4 g/dL (5.8-8.1); Sodium 141 mmol/L (136-145)
[2018-05-09 04:29] LABS: Potassium 2.9 mmol/L (3.5-5.1)
[2018-05-09] MEDS ORDERED: Potassium Chloride 40 MEQ in Sodium Chloride 0.9% 250 ML 250 ML IVPB SCH (07:00)
[2018-05-09] MEDS: Atenolol 50 MG TAB PO SCH (09:51)
--- NOTE | 2018-05-09 14:36 | PRG ---
DATE OF SERVICE: 05/09/2018 SUBJECTIVE: The patient is doing well this morning. He is very hungry. He ate his whole breakfast. He has had no bleeding overnight. He states yesterday he had 2 dark stools, which he states were probably from old blood. No complaints of any abdominal or chest pain. OBJECTIVE: VITAL SIGNS: Temperature 98.6, pulse 85, respirations 16, pulse oximetry 96%, and blood pressure 146/105 and 149/88. HEART: Regular rate and rhythm. LUNGS: Clear. ABDOMEN: Soft and nontender. EXTREMITIES: No edema. LABORATORY DATA: White count 4.3; hemoglobin and hematocrit of 9.5 and 26.9, up from 7.1 and 20.3. Sodium 141, potassium 2.9, chloride 107, creatinine 0.68, and BUN 9. ASSESSMENT: 1. Gastrointestinal bleed, status post coil/particle embolization at [facility] on May 06. 2. Blood loss anemia, status post multiple packed red blood cell transfusions. He did receive some yesterday. 3. Hypokalemia. 4. Hypertension. 5. Hyperlipidemia. 6. Diverticulosis. PLAN: 1. Monitor blood pressure and titrate blood pressure medications. 2. Potassium supplementation. 3. Recheck hemoglobin and hematocrit in the a.m. If the patient continues to progress well, possible discharge this weekend. Job ID: [id number]
[2018-05-09 15:34] LABS: Anion Gap 7 mmol/L (10-20); BUN (Urea Nitrogen) 9 mg/dL (8.4-25.7); Calc. Creatinine Clearance 114 mL/min (70-130); Carbon Dioxide 28 mmol/L (23-31); Estimated GFR-MDRD Greater than 90; Glucose 119 mg/dL (83-110)
[2018-05-09 15:57] LABS: Chloride 109 mmol/L (98-107); Potassium 3.2 mmol/L (3.5-5.1); Sodium 141 mmol/L (136-145)
--- NOTE | 2018-05-09 16:13 | PRG ---
DATE OF SERVICE: 05/09/2018 SUBJECTIVE: Mr. Pope said he had some old blood with a bowel movement, but had not had any bright red blood per rectum. He has no complaints. He has not been tachycardic. OBJECTIVE: VITAL SIGNS: His heart rate is in 70s to 80s. LUNGS: Clear. HEART: Regular rhythm. ABDOMEN: Soft and nontender. LABORATORY DATA: He received blood yesterday with a hemoglobin of 7.1 and it is 9.5 after 2 units today. IMPRESSION: Diverticular bleed ? Hopefully resolved. PLAN: Continue supportive care, probably can be moved out of the Intermediate Care Unit. Job ID: [id number]
[2018-05-09] MEDS: Doxazosin Mesylate 4 MG TAB PO SCH (20:08)
[2018-05-09] MEDS: Simvastatin 40 MG TAB PO SCH (20:08)
[2018-05-09] MEDS ORDERED: Hydrochlorothiazide 25 MG TAB PO SCH (22:00)
[2018-05-10 04:30] LABS: #Eosinphils 0.1 thou/uL (0.0-0.7); #Lymphocytes 1.1 thou/uL (1.20-3.40); #Monocytes 0.3 thou/uL (0.11-0.59); #Neutrophils 2.3 thou/uL (1.40-6.50); %Eosinophils 3.6 % (0.0-10.0); %Lymphocytes 27.8 % (21.0-51.0); %Monocytes 8.6 % (0.0-10.0); Hemoglobin 9.8 g/dL (14.0-18.0); Mean Corpuscular HGB CONC 34.4 g/dL (32.0-36.0); Mean Corpuscular Hemoglobin 32.7 pg (27.0-31.0); Mean Corpuscular Volume 94.9 fL (78.0-98.0); Mean Platelet Volume 6.6 fL (7.4-10.4); Platelet Count 124 thou/uL (130-400); RBC Distribution Width 14.1 % (11.5-14.5); Red Blood Cell (RBC) Count 2.99 mill/uL (4.70-6.10); White Blood Cell (WBC) Count 3.8 thou/uL (4.8-10.8)
[2018-05-10 04:39] LABS: Anion Gap 7 mmol/L (10-20); BUN (Urea Nitrogen) 6 mg/dL (8.4-25.7); Calc. Creatinine Clearance 119 mL/min (70-130); Carbon Dioxide 29 mmol/L (23-31); Chloride 105 mmol/L (98-107); Estimated GFR-MDRD Greater than 90; Glucose 88 mg/dL (83-110); Sodium 138 mmol/L (136-145)
[2018-05-10 04:43] LABS: Potassium 2.9 mmol/L (3.5-5.1)
[2018-05-10] MEDS ORDERED: Potassium Chloride 40 MEQ, Admixture Fee 1 EACH in Sodium Chloride 0.9% 250 ML 250 ML IV SCH (06:00)
[2018-05-10] MEDS ORDERED: Hydrochlorothiazide 25 MG TAB PO SCH (09:00)
[2018-05-10] MEDS: Atenolol 50 MG TAB PO SCH (09:09)
--- NOTE | 2018-05-10 11:23 | PRG ---
DATE OF SERVICE: 05/10/2018 SUBJECTIVE: No complaints by patient. No blood in the stool. Appetite is good. The patient is adamant about going home today. The potassium was low this morning. OBJECTIVE: VITAL SIGNS: Temperature 98.1, pulse 75, respirations 23, pulse ox 99%, and blood pressure 145/94. HEART: Regular rate and rhythm. LUNGS: Clear. ABDOMEN: Soft. EXTREMITIES: With trace edema. I's and O's, 1100 out. LABORATORY DATA: Sodium 138, potassium 2.9, chloride 105, creatinine 0.65, and BUN 6. White count 3.8, hemoglobin 9.8 up from 9.5, and hematocrit 28.3 up from 26.9. ASSESSMENT: 1. Gastrointestinal bleed, status post coil/particle embolization at [facility] on May 06. 2. Blood loss anemia, status post multiple packed red blood cell transfusions. 3. Hypokalemia. 4. Hypertension. 5. Hyperlipidemia. 6. Diverticulosis. PLAN: 1. The patient's IV fluids were stopped yesterday. His hydrochlorothiazide was restarted. He was diuresed. These may be responsible for his low potassium. He is being given potassium this morning. 2. Will require potassium supplementation upon discharge. 3. The patient is adamant about going home today. Would like to keep him another day. However, he wants to go home today. We will recheck potassium at 2 p.m. today. Job ID: [id number]
[2018-05-10] MEDS ORDERED: Magnesium 2 GM/50 ML 2 GM in Premix Bag 1 BAG IVPB SCH (13:45)
[2018-05-10 14:22] LABS: Anion Gap 10 mmol/L (10-20); BUN (Urea Nitrogen) 6 mg/dL (8.4-25.7); Calc. Creatinine Clearance 111 mL/min (70-130); Calcium 8.1 mg/dL (7.8-10.44); Carbon Dioxide 26 mmol/L (23-31); Chloride 104 mmol/L (98-107); Estimated GFR-MDRD Greater than 90; Glucose 103 mg/dL (83-110); Potassium 3.6 mmol/L (3.5-5.1); Sodium 136 mmol/L (136-145)
[2018-05-10 15:42] VITALS: BP 152/94; TEMP 99
--- NOTE | 2018-05-10 20:53 | PRG ---
DATE OF SERVICE: 05/10/2018 SUBJECTIVE: Mr. Pope did well overnight. He said he had no external bleeding and no significant drop in hemoglobin. OBJECTIVE: LUNGS: Clear. HEART: Regular rhythm. ABDOMEN: Absolutely completely nontender. ASSESSMENT AND PLAN: It is anticipated that he will be discharged home. I have instructed him to follow up with Dr. Harris this week, towards the end of the week to get another hemoglobin check. Probably, he should be on iron as well. He appears medically stable for discharge. Job ID: [id number]
--- NOTE | 2018-05-12 12:48 | DIS ---
DATE OF ADMISSION: 05/04/2018 DATE OF DISCHARGE: 05/10/2018 DISCHARGE DIAGNOSES: 1. Gastrointestinal bleed, status post coil/particle embolization at [facility]. 2. Blood loss anemia, status post multiple packed red blood cell transfusions. 3. Hypokalemia. 4. Hypertension. 5. Hyperlipidemia. 6. Diverticulosis. DISCHARGE MEDICATIONS: 1. Simvastatin 40 daily. 2. HCTZ 25 daily. 3. Potassium 20 p.o. daily. 4. Doxazosin 4 daily. 5. Atenolol 50 q.a.m. FOLLOWUP: Follow up with Dr. Elan Harris. Follow up Dr. Mariano. BRIEF HISTORY: This is an 82-year-old male who presents with bright red blood per rectum the day prior to admission. This has happened in the past due to diverticulitis. He presented to the emergency room for evaluation. CT scan showed a possible gastric mass. No diverticulitis was noted. The patient was admitted for further evaluation. HOSPITAL COURSE: Dr. Guillen was consulted. An EGD was performed, which was found to be unremarkable. A colonoscopy was also done, which revealed small external hemorrhoids, but no obvious source of bleeding. The patient received multiple units of packed red blood cells. Over several days, his bleeding was well controlled. He did have episodes of hypokalemia and potassium supplementation was given. The patient is adamant about going home. He will be discharged with additional potassium and then will follow up with Dr. Elan Harris in the next day or two. Discharge H and H are 9.8 and 28.3. Job ID: [id number]
== END 2018-05-10 17:01 | disposition home or self-care (01) | DRG 378 ==
LOC: ERS 10:23 → ONC 13:58 → IMCU/EMU 05-05 18:20
PROVIDERS: ADMIT Family Medicine; ATTEND Family Medicine
PROC: 30233N1 Transfusion of Nonautologous Red Blood Cells into Peripheral Vein, Percutaneous Approach (ICD-10-PCS; principal; 2018-05-05)
PROC: 0DB68ZX Excision of Stomach, Via Natural or Artificial Opening Endoscopic, Diagnostic (ICD-10-PCS; 2018-05-05)
PROC: 0W3P8ZZ Control Bleeding in Gastrointestinal Tract, Via Natural or Artificial Opening Endoscopic (ICD-10-PCS; 2018-05-05)
PROC: 0W3P8ZZ Control Bleeding in Gastrointestinal Tract, Via Natural or Artificial Opening Endoscopic (ICD-10-PCS; 2018-05-05)
DX: K57.31 Diverticulosis of large intestine without perforation or abscess with bleeding (principal); D62 Acute posthemorrhagic anemia; I10 Essential (primary) hypertension; E78.5 Hyperlipidemia, unspecified; Z98.890 Other specified postprocedural states; Z79.82 Long term (current) use of aspirin; E87.6 Hypokalemia; Z86.010 Personal history of colon polyps; K76.9 Liver disease, unspecified; K64.8 Other hemorrhoids; K64.4 Residual hemorrhoidal skin tags
CPT/HCPCS: 36415; 36430; 74177; 80048; 80053; 83735; 85007; 85025; 85027; 85610; 85730; 86850; 86900; 86901; 88305; 88312; 94760; J1940; J2001; J2704; J3480; J7050; P9016